=== PATIENT | female | born 1995 | race Caucasian/White ===

== ENCOUNTER 2023-11-30 10:29 | Day surgery (SDC) | payer OTHER ==
[~2023-11-30 10:29] MED LIST: Sensorcaine 0.25% 10 ML ONE
[2023-11-30 10:44] LABS: HCG URINE TEST NEGATIVE (NEGATIVE)
[2023-11-30] MEDS ORDERED: Lactated Ringers 1,000 ML IV ONE ×2 (10:54→13:37)
[2023-11-30] MEDS ORDERED: MEFOXIN 2 GM PREMIX** 2 GM/50 ML ML IV ONE (10:55)
[2023-11-30] MEDS: Lactated Ringers 1,000 ML IV SCH (10:56)
[2023-11-30] MEDS: MEFOXIN 2 GM PREMIX** 2 GM/50 ML ML IV SCH (10:56)
[2023-11-30 11:04] VITALS: RESP 18
--- NOTE | 2023-11-30 11:06 | HP ---
PROCEDURE DATE: 11/30/2023 HISTORY OF PRESENT ILLNESS: The patient had some epigastric pain, no vomiting, no specific food trigger, on waking up in the morning, worse on occasion. US showed cholelithiasis. PAST MEDICAL HISTORY: Has had some reflux and heartburn. CURRENT MEDICATIONS: Pantoprazole as well as some Adipex. ALLERGIES: NKDA. PAST SURGICAL HISTORY: Had arm surgery with hardware in the past. FAMILY HISTORY: Negative with regards to this problem. SOCIAL HISTORY: No smoking or alcohol abuse. REVIEW OF SYSTEMS: 12 systems reviewed. No chest pain or palpitations. Other systems negative or noncontributory other than above and per preadmission questionnaire. PHYSICAL EXAMINATION: Height 5' 2", BMI 26.52. GENERAL: No acute distress. HEENT: Sclerae nonicteric. NECK: No JVD. CHEST: Equal excursion. Nonlabored breathing. CVS: Regular rate and rhythm. ABDOMEN: Soft. EXTREMITIES: No significant edema. NEURO: Alert and oriented, moving extremities symmetrically. PSYCH: Appropriate mood and affect. SKIN: Dry. IMPRESSION: ACUTE EXACERBATION OF CHRONIC CHOLECYSTITIS, CHOLELITHIASIS. RECOMMEND CHOLECYSTECTOMY. Risks and benefits explained in detail, but not limited to, bleeding; infection; risk of trocar injury or hernia; risk of bowel, bladder, or blood vessel injury; risk of bile leak, bile duct injury, or retained stone or sludge possibly requiring further procedures either open or endoscopic retrograde cholangiopancreatography; general risk of anesthesia, deep vein thrombosis, pulmonary embolism, or pneumonia; perioperative risks of aches, pains, bloating, constipation and/or loose stools possibly chronic in nature; possibly no improvement in pre-op symptoms possibly requiring further work-up, studies, endoscopy, or other studies or procedures. Will proceed with laparoscopic cholecystectomy, possible open as an outpatient. Otherwise, continue medication for gastroesophageal reflux disease.
[2023-11-30] MEDS ORDERED: Zofran 4 MG/2 ML VIAL ONE ×2 (12:57→13:58)
[2023-11-30] MEDS ORDERED: SUBLIMAZE 100 MCG/2 ML ONE ×2 (12:57→14:13)
[2023-11-30] MEDS ORDERED: Decadron 4 MG INJ ONE (12:57)
[2023-11-30] MEDS ORDERED: TORAdol 30 mg Injection ONE (12:57)
[2023-11-30] MEDS ORDERED: Versed 2 MG/2 ML Injection ONE (12:57)
[2023-11-30] MEDS ORDERED: Xylocaine-Mpf 2% 5 Ml Vial ONE (12:57)
[2023-11-30] MEDS ORDERED: ROCURONIUM BROMIDE IV ONE (12:57)
[2023-11-30] MEDS ORDERED: DIPRIVAN 200 MG/20 ML IV ONE (12:57)
[2023-11-30] MEDS ORDERED: BRIDION 200MG/2ML IV ONE (12:57)
[2023-11-30] MEDS ORDERED: LOPRESSOR INJECTION IV ONE (13:22)
[2023-11-30] MEDS ORDERED: Hydromorphone 1 mg/ml Injection ONE (14:13)
[2023-11-30 14:57] VITALS: O2SAT 100
[2023-11-30 15:07] VITALS: BP 122/71; PULSE 67; TEMP 97.8
--- NOTE | 2023-12-01 11:04 | OP ---
SURGERY DATE/TIME: 11/30/2023 [id number] PREOPERATIVE DIAGNOSIS: Exacerbation of chronic cholecystitis, symptomatic cholelithiasis. POSTOPERATIVE DIAGNOSIS: Exacerbation of chronic cholecystitis, symptomatic cholelithiasis. PROCEDURE: Laparoscopic cholecystectomy. SURGEON: Luis Carlos Smith MD ANESTHESIA: General. ESTIMATED BLOOD LOSS: Minimal. INDICATIONS: As noted above. Risks and benefits were explained in detail, but not limited to. Consent obtained. DESCRIPTION OF PROCEDURE AND FINDINGS: The patient was taken to the operating room. General anesthesia was induced. Abdomen prepped and draped in usual sterile fashion after official time-out, no disagreement in planned procedure. A transverse incision was made at the infraumbilical area. She had a supraumbilical piercing. Fascia grasped and pulled upward. Veress needle inserted. Tested with saline. Pneumoperitoneum accomplished insufflating from an opening pressure of 0-15. A 5 mm bladeless port and camera inserted without difficulty followed by two 5 mm right upper quadrant ports and 5 mm epigastric port. Gallbladder was grasped, checked the edge of the liver. Dissection carried posterolateral to anterior fashion. Slowly, carefully well skeletonized until critical view obtained both anteriorly and posteriorly. Once this was accomplished, cystic duct/cystic artery clipped x3 and divided in the usual fashion. Gallbladder was carefully dissected free from its dense attachments to the liver bed and clipping additional oozing side branches off the cystic artery/cystic vein directly as necessary on the gallbladder wall. Just prior to releasing it from its final attachments to the liver bed, the liver bed reinspected. Clips were noted to be in place in the cystic duct/cystic artery stumps. No signs of any active bleeding or bile leakage. It was felt there was no benefit from drain placement. Gallbladder was released from its final attachment at edge of the liver, placed in provided sac and pulled up into the infraumbilical port site, enlarged slightly with a clamp, and the gallbladder bag pulled free and passed off. This fascial defect closed with puncture closure device and #1 Vicryl. Pneumoperitoneum decompressed after irrigating with copious amount of irrigation lateral to the liver, irrigating clear. Pneumoperitoneum decompressed. Wounds irrigated out. Skin incision closed with 4-0 Vicryl. Steri-Strips and sterile dressing applied. The patient tolerated the procedure well. There were no immediate complications. Findings discussed with family out in the waiting area.
== END 2023-11-30 15:12 | disposition home or self-care (01) ==
LOC: SDC 10:29
PROVIDERS: ATTEND Surgery
DX: K80.10 Calculus of gallbladder with chronic cholecystitis without obstruction (principal)
CPT/HCPCS: 81025; J0694; J1100; J1170; J1885; J2250; J2405; J2704; J3010